=== PATIENT | female | born 1950 | race Hispanic/Latino ===

== ENCOUNTER 2018-01-03 06:46 | Inpatient (IN) | payer MEDICARE ==
[2017-12-31 09:18] LABS: BASOPHILS % 0.5 % (0.0-1.0); EOSINOPHILS # (AUTO) 0.1 (0.0-0.4); EOSINOPHILS % 1.4 % (0.0-6.0); HEMATOCRIT 40.8 % (34.2-44.1); HEMOGLOBIN 13.3 g/dL (12.0-16.0); LYMPHOCYTES # (AUTO) 1.9 (1.0-3.2); LYMPHOCYTES % 24.5 % (18.0-39.1); MEAN CORPUSCULAR HEMOGLOBIN 30.5 pg (28-32); MEAN CORPUSCULAR HGB CONC 32.6 g/dL (31-35); MEAN CORPUSCULAR VOLUME 93.6 fL (81-99); MONOCYTES # (AUTO) 0.5 (0.2-0.8); MONOCYTES % 5.9 % (4.4-11.3); NEUTROPHILS # (AUTO) 5.2 (2.1-6.9); NEUTROPHILS % 67.2 % (38.7-80.0); PLATELET COUNT 203 x10e3/uL (140-360); RED BLOOD COUNT 4.36 x10e6/uL (3.6-5.1); RED CELL DISTRIBUTION WIDTH 13.4 % (11.7-14.4)
[2017-12-31 09:34] LABS: BLOOD UREA NITROGEN 18 mg/dL (7-26); BUN/CREATININE RATIO 23 (6-25); CALCIUM 9.8 mg/dL (8.4-10.2); CARBON DIOXIDE 26 mmol/L (22-29); CHLORIDE 105 mmol/L (98-107); CREATININE, SERUM 0.79 mg/dL (0.57-1.11); EST GLOMERULAR FILTRATION RATE > 60 ML/MIN (60-); GLUCOSE 103 mg/dL (74-118); SODIUM 145 mmol/L (136-145)
--- NOTE | 2017-12-31 12:52 | Diagnostic Imaging Report ---
EXAMINATION: CHEST 2 VIEWS INDICATION: Pre-Op COMPARISON: None FINDINGS: TUBES and LINES: None. LUNGS: Lungs are well inflated and clear. There is no evidence of pneumonia or pulmonary edema. PLEURA: No pleural effusion or pneumothorax. HEART AND MEDIASTINUM: The cardiomediastinal silhouette is unremarkable. Status post CABG. BONES AND SOFT TISSUES: Status post median sternotomy. No acute osseous lesion. Soft tissues are unremarkable. UPPER ABDOMEN: No free air under the diaphragm. IMPRESSION: No acute thoracic abnormality. Signed by: Dr. Aroldo Boothe MD on 12/31/2017 12:49 PM
[~2018-01-03] VITALS: Ht 157.5 cm; Wt 82.6 kg
[~2018-01-03 06:46] MED LIST: ALENDRONATE SOD70 MG PO; AMLODIPINE-VALSARTAN PO; ASPIR 8181 MG PO; CLOPIDOGREL75 MG PO; COQ-10100 MG PO; CRESTOR10 MG PO; FUROSEMIDE40 MG PO; ISOSORBIDE MONO30 MG PO; LYRICA75 MG PO; METFORMIN HCL500 MG PO; METOPROLOL SUCC50 MG PO; POTASSIUM CHLO20 ME1 PO; VITAMIN B-1250 MCG PO
[2018-01-03] MEDS ORDERED: CELECOXIB 200 MG CAP ONE (06:57)
[2018-01-03] MEDS ORDERED: GABAPENTIN 300 MG CAP ONE (06:58)
[2018-01-03] MEDS ORDERED: CEFAZOLIN SOD 2 GM/D5W 50ML 50 ML IV ONE (06:58)
[2018-01-03] MEDS ORDERED: DEXAMETHASONE SOD PHOS 10 MG/1 ML VIAL ONE (06:58)
[2018-01-03] MEDS ORDERED: ROPIVACAINE 246.25 MG, EPINEPHRINE HCL 1:1000 0.5 MG, CLONIDINE HCL 0.08 MG, KETOROLAC ... INJ ONE ×5 (07:30)
[2018-01-03] MEDS ORDERED: TRANEXAMIC ACID 1,000 MG/10 ML ML ONE (09:07)
[2018-01-03] MEDS ORDERED: BACITRACIN 50,000 UNIT VIAL ONE (09:07)
[2018-01-03] MEDS ORDERED: MUPIROCIN 2% OINT 22 GM TUBE ONE (09:07)
[2018-01-03] MEDS ORDERED: BUPIVACAINE 7.5MG/ML /DEXTROSE 82.5MG/ML 2 ML AMP INJ ONE (09:30)
[2018-01-03] MEDS ORDERED: SODIUM CHLORIDE 0.9% 1000ML 1,000 ML IV SCH (10:59)
[2018-01-03] MEDS ORDERED: DIPHENHYDRAMINE HCL INJ 50 MG/ML VIAL IM/IV PRN (11:00)
[2018-01-03] MEDS ORDERED: HYDROCODONE/APAP 7.5MG-325MG 1 EA TAB PO PRN (11:00)
[2018-01-03] MEDS ORDERED: PROMETHAZINE HCL (IM) 25 MG/ML VIAL IM PRN (11:00)
[2018-01-03] MEDS ORDERED: DOCUSATE SODIUM 100 MG CAP PO PRN (11:00)
[2018-01-03] MEDS ORDERED: ACETAMINOPHEN 650 MG SUPP PR PRN (11:00)
[2018-01-03] MEDS ORDERED: KETOROLAC TROMETHAMINE 30 MG/ML VIAL IV PRN (11:00)
[2018-01-03] MEDS ORDERED: HYDROCODONE/APAP 5MG-325MG TAB PO PRN (11:00)
[2018-01-03] MEDS ORDERED: ONDANSETRON HCL INJ 2 MG/ML VIAL IV PRN (11:00)
--- NOTE | 2018-01-03 11:39 | Diagnostic Imaging Report ---
PROCEDURE:X-RAY PELVIS, AP VIEW COMPARISON:None. INDICATIONS:POST LEFT HIP SURGERY FINDINGS: Post operative changes of the left hip arthroplasty with expected soft tissue swelling and emphysema. Skin humberto overlying superior lateral left thigh. Hardware is intact. Degenerative changes of the right hip. CONCLUSION: Postoperative changes of the left hip arthroplasty. Dictated by: Abel Laughlin M.D. on 01/03/2018 at 11:46 Electronically approved by: Abel Laughlin M.D. on 01/03/2018 at 11:46
[2018-01-03] MEDS ORDERED: FENTANYL CITRATE/PF 100MCG/2 ML INJ ONE (13:54)
[2018-01-03] MEDS ORDERED: MIDAZOLAM HCL 2 MG/2 ML VIAL ONE (13:54)
[2018-01-03] MEDS ORDERED: CEFAZOLIN SOD 1 GM/D5W 50ML 50 ML IV SCH (14:00)
[2018-01-03 16:30] VITALS: BP 153/69
[2018-01-03 16:41] VITALS: BP 153/69
[2018-01-03] MEDS ORDERED: CELECOXIB 100 MG CAP PO SCH (17:00)
[2018-01-03] MEDS: ASPIRIN 325 MG TAB PO SCH (17:20)
[2018-01-03] MEDS: CELECOXIB 200 MG CAP PO SCH (17:20)
[2018-01-03] MEDS: CEFAZOLIN SOD 1 GM VIAL IV SCH (17:30)
[2018-01-03] MEDS: ACETAMINOPHEN 1000 MG/100 ML IV SCH (17:55)
[2018-01-03 20:00] VITALS: BP 175/76
[2018-01-03] MEDS ORDERED: ZOLPIDEM TARTRATE 5 MG TAB PO PRN (21:00)
[2018-01-03] MEDS ORDERED: VALSARTAN 160 MG TAB PO SCH (22:00)
[2018-01-03] MEDS ORDERED: AMLODIPINE BESYLATE 5 MG TAB PO SCH (22:00)
[2018-01-04] VITALS: BP 124/60
[2018-01-04] MEDS: CEFAZOLIN SOD 1 GM VIAL IV SCH ×2 (00:31→08:16)
[2018-01-04 04:00] VITALS: BP 138/60
[2018-01-04] MEDS: ACETAMINOPHEN 1000 MG/100 ML IV SCH ×2 (05:35)
[2018-01-04 05:58] LABS: HEMATOCRIT 34.7 % (34.2-44.1); HEMOGLOBIN 11.4 g/dL (12.0-16.0)
[2018-01-04] MEDS ORDERED: METFORMIN HCL 500 MG TAB PO SCH (08:00)
[2018-01-04] MEDS: CELECOXIB 200 MG CAP PO SCH (08:16)
[2018-01-04] MEDS: ASPIRIN 325 MG TAB PO SCH (08:16)
[2018-01-04 08:27] VITALS: BP 161/74
--- NOTE | 2018-01-04 08:43 | Operative Report ---
DATE OF PROCEDURE: January 03, 2018 GLUE BONE CRUSHER: Geremias Woodard PA-C The patient was brought to the operating room for induction of anesthesia. Throughout this case, my PA's assistance was necessary for retraction of soft tissue and positioning of the extremity. This allows for efficient and technically successful execution of the operation and is considered medically necessary. PREOPERATIVE DIAGNOSIS: Osteoarthritis, left hip. POSTOPERATIVE DIAGNOSIS: Osteoarthritis, left hip. PROCEDURE: Left total hip arthroplasty. INDICATIONS: The patient is a 67-year-old lady who has end-stage arthritis of her left hip. She has failed conservative management and would now like to proceed with a left total hip replacement. The risks and benefits of the procedure have been explained. She states she understands and wishes to proceed. DESCRIPTION OF PROCEDURE: The patient was brought to the operating room and given a spinal anesthetic. She received prophylactic antibiotics and tranexamic acid in the holding area. She was positioned in the right lateral decubitus position. Her left hip was prepped and draped in a sterile manner. A preoperative time out was performed. A posterior approach to the left hip was made. Abundant subcutaneous and adipose tissue was encountered. Hemostasis was obtained with electrocautery. The posterior capsule was carefully exposed. A deep self-retaining Charnley retractor was placed. Care was taken to avoid injury to the sciatic nerve. Further hemostasis was obtained with electrocautery. The short external rotators and posterior capsule were released. The hip was dislocated. An oscillating saw was used to resect the femoral head. Acetabular retractors were then carefully placed. Soft tissue releases were performed to provide adequate visualization. This was a somewhat deep wound due to the patient's body mass index. Marginal osteophytes and labral remnants were excised. The true floor of the acetabulum was established with a 44-mm reamer. The socket was then sequentially reamed up to 51 mm. A large subchondral cyst in the superior dome of the socket was debrided. Autologous bone graft was taken from the proximal femur and impacted into the cystic space. A [employer] osseo-T socket was then seated. This had a 52 mm outer diameter. A highly cross link polyethylene liner with a 36 mm inner diameter and no posterior elevation was then impacted into place. A single 20-mm screw had been used to augment fixation. The hip had been thoroughly irrigated on numerous occasions at this time with a shower-tip pulsatile lavage. A portion of a 100 mL premixed pericapsular KADY injection was placed around the soft tissue. The socket was then packed with moistly soaked lap sponge and attention was directed towards proximal femur. A taper pin reamer was used to establish entry to the femoral canal. The [employer] Taperloc broaches were then impacted. A #5 stem had good canal fill and stability for trial reductions. A standard 36-mm head was felt to provide optimal roman catholic of limb length and stability. The hip was put through a full arc of motion and noted have good stability. The trial implants were removed. The hip was further irrigated with a pulsatile lavage. The remainder of the pericapsular injection was placed into the soft tissue. The stem was then impacted into place. A 36 mm ceramic head and a standard neck were seated onto a clean and dry stem. A final reduction was performed. The hip was again put through an arc of motion and noted to have good stability. The posterior capsule was repaired with interrupted #2 Ethibond. The piriformis had been left intact. The tensor fascia was closed with interrupted #2 Ethibond. The skin was carefully closed with subcuticular Vicryl and humberto. A sterile bandage was applied. She was returned to the supine position and transported to the recovery room in stable condition. Estimated blood loss was about 100 mL. At the end of the procedure, all needle and sponge counts were correct. Job#: [id number] MS
[2018-01-04] MEDS ORDERED: METOPROLOL SUCCINATE 50 MG TAB XL PO SCH (09:00)
[2018-01-04] MEDS ORDERED: PREGABALIN 50 MG CAP PO SCH (09:00)
[2018-01-04] MEDS ORDERED: FUROSEMIDE 40 MG TAB PO SCH (09:00)
[2018-01-04] MEDS ORDERED: ISOSORBIDE MONONITRATE 30 MG TAB CR PO SCH (09:00)
[2018-01-04] MEDS ORDERED: SIMVASTATIN 40 MG TAB PO SCH (09:00)
[2018-01-04] MEDS ORDERED: POTASSIUM CHLORIDE 20 MEQ TAB CR PO SCH (09:00)
[2018-01-04 09:29] VITALS: BP 161/74
[2018-01-04] MEDS ORDERED: ACETAMINOPHEN 1000 MG/100 ML IV PRN (11:00)
[2018-01-04] MEDS ORDERED: ASPIRIN325 MG PO (11:37)
[2018-01-04] MEDS ORDERED: NORCO 7.5-3251 EACH PO ×2 (12:24→12:27)
[2018-01-04 13:22] VITALS: BP 126/60
== END 2018-01-04 13:30 | disposition home health service (06) | DRG 470 ==
LOC: OR 06:46 → PACU V 11:01 → MED/SURG 15:46
PROVIDERS: ADMIT Specialist; ATTEND Specialist
PROC: 0SRB04Z Replacement of Left Hip Joint with Ceramic on Polyethylene Synthetic Substitute, Open Approach (ICD-10-PCS; principal; 2018-01-04)
DX: M16.12 Unilateral primary osteoarthritis, left hip (principal); I10 Essential (primary) hypertension; E11.42 Type 2 diabetes mellitus with diabetic polyneuropathy; Z95.1 Presence of aortocoronary bypass graft; Z79.84 Long term (current) use of oral hypoglycemic drugs; I25.2 Old myocardial infarction; K21.9 Gastro-esophageal reflux disease without esophagitis; Z86.73 Personal history of transient ischemic attack (TIA), and cerebral infarction without residual deficits; I25.10 Atherosclerotic heart disease of native coronary artery without angina pectoris; D64.9 Anemia, unspecified
CPT/HCPCS: 36415; 71046; 72170; 80048; 82948; 85014; 85018; 85025; 86850; 86900; 86920; J0171; J0690; J1100; J1885; J2250; J2795; J7030

== ENCOUNTER 2019-12-04 17:12 | Inpatient (IN) | payer MEDICARE ==
[~2019-12-04] VITALS: Ht 157.5 cm; Wt 82.6 kg
[~2019-12-04 17:12] MED LIST changes: +ASPIRIN325 MG PO; +NORCO 7.5-3251 EACH PO
[2019-12-04] MEDS ORDERED: ASPIRIN 81 MG CHEW TAB PO ONE (17:15)
[2019-12-04] MEDS ORDERED: AZITHROMYCIN 500MG/NS 250 ML 250 ML IV STA (17:15)
[2019-12-04] MEDS ORDERED: ACETAMINOPHEN 325 MG TAB PO STA (17:15)
--- NOTE | 2019-12-04 17:15 | Emergency Department Note ---
History of Present Illnes History of Present Illness History of Present Illness This is a 69 year old female with one week h/o of fevers, malaise and diarrhea of one week duration. Patient had tested positive for COVID-19 infectionby PCP. Historian: Patient Arrival Mode: Car Onset (how long ago): week(s) Location: generalized Radiation: Reports back, Reports extremity Severity: moderate Onset quality: gradual Duration (how long): week(s) Timing of current episode: constant Progression: worsening Chronicity: new Context: Reports recent illness Relieving factors: none Exacerbating factors: none Associated symptoms: Reports fever/chills, Reports shortness of breath, Reports weakness Treatments prior to arrival: none Previous service: medications given, tests performed, re-evaluation Past Medical/Family History Physician Review I have reviewed the patient's past medical and family history. Any updates have been documented here. Past Medical History Past Medical History: [place], CVA Other Surgery: C section, gall bladder surgery by pass Social History Smoking Cessation: Never Smoker Counseling Performed: No Alcohol Use: None Any Illegal Drug Use: No Review of Systems Review of Systems Constitutional: Reports fever EENTM: Reports no symptoms Cardiovascular: Reports no symptoms Respiratory: Reports cough Gastrointestinal: Reports diarrhea Genitourinary: Reports no symptoms Musculoskeletal: Reports no symptoms Integumentary: Reports no symptoms Neurological: Reports no symptoms Psychological: Reports no symptoms Endocrine: Reports no symptoms Hematological/Lymphatic: Reports no symptoms Physical Exam Related Data Allergies: Coded Allergies: No Known Allergies (Unverified , 12/31/17) Triage Vital Signs Vital Signs Date Time Temp Pulse Resp B/P (MAP) Pulse Ox O2 Delivery O2 Flow Rate FiO2 12/04/19 17:17 100.4 82 24 158/71 93 Room Air Vital signs reviewed: Yes Physical Exam CONSTITUTIONAL Constitutional: Present obese, Present ill appearing HENT HENT: Present normocephalic, Present atraumatic, Present oropharynx clear/moist, Present nose normal HENT L/R: Present left ext ear normal, Present right ext ear normal EYES Eyes: Reports PERRL, Reports conjunctivae normal NECK Neck: Present ROM normal PULMONARY Pulmonary: Present other (decreased BS) CARDIOVASCULAR Cardiovascular: Present regular rhythm, Present heart sounds normal, Present capillary refill normal, Present normal rate GASTROINTESTINAL Abdominal: Present soft, Present nontender, Present bowel sounds normal GENITOURINARY Genitourinary: Present exam deferred SKIN Skin: Present warm, Present dry MUSCULOSKELETAL Musculoskeletal: Present ROM normal NEUROLOGICAL Neurological: Present alert, Present oriented x 3, Present no gross motor or sensory deficits PSYCHOLOGICAL Psychological: Present mood/affect normal, Present judgement normal Results Laboratory Lab results reviewed: Yes Laboratory comments UTI : many bacteria Imaging Imaging results reviewed: Yes Impressions [place] [address] Patient Name: JONA HUTSON MR #: [id number] : 1950 Age/Sex: 69/F Req #: [id number] Adm Physician: LEONA POWELL MD Ordered by: JOSEPH TRAVIS DO Report #: [id number] Location: [facility] Room/Bed: [place] [address] Procedure: [id number] DX/CHEST SINGLE (PORTABLE) Exam Date: 12/04/19 Exam Time: 1740 REPORT STATUS: Signed EXAMINATION: CHEST SINGLE (PORTABLE) INDICATION: Fever and difficulty breathing. COMPARISON: Chest x-ray on 12/31/2017 FINDINGS: TUBES and LINES: None. LUNGS: There is low lung volumes with multifocal patchy airspace opacities particularly in the left mid and lower lungs. PLEURA: There is probable left pleural effusion. HEART AND MEDIASTINUM: The left heart border is obscured by left lower lobe opacification. BONES AND SOFT TISSUES: No acute osseous lesion. Median sternotomy wires are unchanged. UPPER ABDOMEN: No free air under the diaphragm. IMPRESSION: Multifocal patchy airspace opacities particularly in the left lower lobe with probable superimposed left pleural effusion. This constellation of findings are highly suspicious for multifocal infection such as viral pneumonia (including Covid-19). Signed by: Nai Cobos MD on 12/04/2019 6:01 PM Dictated By: NAI COBOS MD 00 Transcribed By: AB on 12/04/191800 COPY TO: JOSEPH TRAVIS DO~ Procedures 12 Lead ECG Interpretation ECG Interpretation : ECG: ECG 1 Platform Attendant: Interpreted by ED physician Date: Dec 04, 2019 Time: 17:17 Prior ECG tracings: reviewed Rhythm: sinus rhythm Rate: normal BPM: 84 QRS axis: normal ST segments normal: No ST segment flattening: I, II, aVL T waves normal: Yes Clinical Impression: non-specific ECG Critical Care Time Total Critical Care Time (min): 31 Critcal care necessary due to: respiratory failure Critcal care time spent by me: evaluation patient response to tx, examination of patient, obtaining hx from patient/surrogate, order/perform tx or interventions, order/review laboratory studies, order/review radiographic studies, pulse oximetry Assessment & Plan Medical Decision Making MDM 69 yof presents with dyspea and hypoxia. Dyspnea upon arrival. Diff Dx : PE, PTX, CHF, Sepsis, COVID-19 URI infection, ACS, COPDD, ARDS, airway obstruction, Lung CA. Patient concerning for impending respiratory failure . Plan to admit transferadmission Assessment & Plan Final Impression: (1) Acute hypoxemic respiratory failure due to COVID-19 (2) UTI (urinary tract infection) Depart Disposition: ADMITTED Home Meds Reported Medications Folic Acid/Multivits-Min/Lut (MULTI-VITAMIN GUMMIES) 1 Each Tab.chew, 1 TAB.CHEW PO DAILY 12/04/19 Gabapentin (NEURONTIN) 300 Mg Capsule, 300 MG PO TID, CAP 12/04/19 [Amlodipine-Valsartan] 5/,320 No Conflict Check, 1 TAB PO DAILY 5/320 MG 12/31/17 Metformin Hcl (METFORMIN HCL) 500 Mg Tablet, 500 MG PO BID, #60 TAB 12/31/17 Clopidogrel Bisulfate (CLOPIDOGREL) 75 Mg Tablet, 75 MG PO DAILY, #30 TAB 12/31/17 Furosemide (FUROSEMIDE) 40 Mg Tablet, 20 MG PO Daily, #30 TAB 12/31/17 Metoprolol Succinate (METOPROLOL SUCCINATE) 50 Mg Tab.er.24h, 100 MG PO DAILY, MG 12/31/17 Isosorbide Mononitrate (ISOSORBIDE MONONITRATE ER) 30 Mg Tab.er.24h, 60 MG PO DAILY, #30 TAB 12/31/17 Rosuvastatin Calcium (CRESTOR) 10 Mg Tab, 20 MG PO DAILY THERAPEUTICALLY SUBSTITUTED WITH SIMVASTATIN 40MG 12/31/17 Alendronate Sodium (ALENDRONATE SODIUM) 70 Mg Tablet, 70 MG PO weekly WEEKLY every wednesday12/31/17 Discontinued Reported Medications Hydrocodone Bit/Acetaminophen (NORCO 7.5-325 TABLET) 1 Each Tablet, 1 EA PO Q4HR PRN for thuan, TAB 01/04/18 Hydrocodone Bit/Acetaminophen (NORCO 7.5-325 TABLET) 1 Each Tablet, 1 EA PO Q4HR for PAIN, TAB 01/04/18 Cyanocobalamin (Vitamin B-12) (VITAMIN B-12) 50 Mcg Tablet, MCG PO DAILY 12/31/17 Ubidecarenone (COQ-10) 100 Mg Capsule, 200 MG PO DAILY 12/31/17 Potassium Chloride (POTASSIUM CHLORIDE) 20 Meq Tab.er.prt, 20 MEQ PO DAILY 12/31/17 Pregabalin (LYRICA) 75 Mg Cap, 100 MG PO TID, #30 CAP 12/31/17 Discontinued Scripts Aspirin (ASPIRIN) 325 Mg Tablet, 325 MG PO BID for 21 Days Prov:ANNALISA NICHOLS 01/04/18 Medications in the ED Acetaminophen 650 mg ONCE STAT PO Last administered on 12/04/19at 18:01; Admin Dose 650 MG; Start 12/04/19 at 17:15; Stop 12/04/19 at 17:23; Status DC Azithromycin 250 ml @ 125 mls/hr ONCE STAT IV Last administered on 12/04/19at 18:01; Admin Dose 125 MLS/HR; Start 12/04/19 at 17:15; Stop 12/04/19 at 19:14; Status DC Aspirin 81 mg PRN ONCE PO Last administered on 12/04/19at 18:01; Admin Dose 81 MG; Start 12/04/19 at 17:15; Stop 12/04/19 at 17:23; Status DC JOSEPH TRAVIS DO Dec 04, 2019 17:15
[2019-12-04 18:00] LABS: BASOPHILS % 0.2 % (0.0-1.0); EOSINOPHILS % 0.5 % (0.0-6.0); HEMATOCRIT 35.8 % (34.2-44.1); HEMOGLOBIN 11.4 g/dL (12.0-16.0); LYMPHOCYTES # (AUTO) 1.2 (1.0-3.2); MEAN CORPUSCULAR HEMOGLOBIN 28.3 pg (28-32); MEAN CORPUSCULAR HGB CONC 31.8 g/dL (31-35); MEAN CORPUSCULAR VOLUME 88.8 fL (81-99); MONOCYTES # (AUTO) 0.5 (0.2-0.8); MONOCYTES % 6.9 % (4.4-11.3); NEUTROPHILS # (AUTO) 4.8 (2.1-6.9); NEUTROPHILS % 73.9 % (38.7-80.0); PLATELET COUNT 266 x10e3/uL (140-360); RED BLOOD COUNT 4.03 x10e6/uL (3.6-5.1); RED CELL DISTRIBUTION WIDTH 13.5 % (11.7-14.4)
[2019-12-04 18:02] LABS: INR 0.97; PROTHROMBIN TIME 13.5 seconds (11.9-14.5)
--- NOTE | 2019-12-04 18:05 | Diagnostic Imaging Report ---
EXAMINATION: CHEST SINGLE (PORTABLE) INDICATION: Fever and difficulty breathing. COMPARISON: Chest x-ray on 12/31/2017 FINDINGS: TUBES and LINES: None. LUNGS: There is low lung volumes with multifocal patchy airspace opacities particularly in the left mid and lower lungs. PLEURA: There is probable left pleural effusion. HEART AND MEDIASTINUM: The left heart border is obscured by left lower lobe opacification. BONES AND SOFT TISSUES: No acute osseous lesion. Median sternotomy wires are unchanged. UPPER ABDOMEN: No free air under the diaphragm. IMPRESSION: Multifocal patchy airspace opacities particularly in the left lower lobe with probable superimposed left pleural effusion. This constellation of findings are highly suspicious for multifocal infection such as viral pneumonia (including Covid-19). Signed by: Aleksandr Rachel MD on 12/04/2019 6:01 PM
[2019-12-04 18:10] LABS: ALANINE AMINOTRANSFERASE 20 IU/L (0-55); ALBUMIN 3.1 g/dL (3.5-5.0); ALBUMIN/GLOBULIN RATIO 0.7 (0.8-2.0); ALKALINE PHOSPHATASE 53 IU/L (40-150); ANION GAP 14.6 mmol/L (8-16); BLOOD UREA NITROGEN 15 mg/dL (7-26); BUN/CREATININE RATIO 19 (6-25); CARBON DIOXIDE 25 mmol/L (22-29); CHLORIDE 104 mmol/L (98-107); CREATINE KINASE 126 IU/L (29-168); CREATININE, SERUM 0.81 mg/dL (0.57-1.11); EST GLOMERULAR FILTRATION RATE > 60 ML/MIN (60-); GLUCOSE 108 mg/dL (74-118); POTASSIUM 3.6 mmol/L (3.5-5.1); SODIUM 140 mmol/L (136-145)
--- NOTE | 2019-12-04 18:15 | NUR ---
Pt received from ER at this time. Pt is aox3 and able to verbalize needs. Denies any pain at this time. Breaths are even and unlabored on room air at this time. IV to Left AC is in place and patent currently running azithromycin.
[2019-12-04 18:30] VITALS: BP 137/64
[2019-12-04 18:31] LABS: BACTERIA,URINE MANY /HPF; BILIRUBIN,URINE NEGATIVE (NEGATIVE); CLARITY,URINE SL CLOUDY (CLEAR); COLOR,URINE YELLOW (YELLOW); EPITHELIAL CELLS,URINE RARE /LPF; KETONES,URINE NEGATIVE (NEGATIVE); LEUKOCYTE ESTERASE ,URINE SMALL (NEGATIVE); NITRITE,URINE POSITIVE (NEGATIVE); PROTEIN,URINE DIPSTICK 2+ (NEGATIVE); URINE UROBILINOGEN 1 mg/dL (0.2 - 1)
[2019-12-04 20:00] VITALS: BP 128/61
[2019-12-04] MEDS ORDERED: CEFTRIAXONE SOD 1 GM/NS 50 ML 50 ML IV SCH (20:00)
[2019-12-04] MEDS ORDERED: ACETAMINOPHEN 325 MG TAB PO PRN (20:00)
[2019-12-04 20:08] VITALS: BP 128/61
[2019-12-04] MEDS ORDERED: NEURONTIN300 MG PO (20:09)
[2019-12-04] MEDS ORDERED: MULTI-VITAMIN1 EAC1 PO (20:09)
[2019-12-04] MEDS: ENOXAPARIN 30 MG/0.3 ML SYR SC SCH (20:45)
[2019-12-04] MEDS ORDERED: SODIUM CHLORIDE 0.9% 250ML 250 ML ONE (20:48)
[2019-12-04] MEDS ORDERED: ZOLPIDEM TARTRATE 5 MG TAB PO PRN (21:00)
--- NOTE | 2019-12-04 21:51 | Consultation ---
DATE OF CONSULTATION: Pulmonary Critical Care Consultation CHIEF COMPLAINT: Cough, dyspnea, and fevers. HISTORY OF PRESENT ILLNESS: The patient is a 69-year-old woman. She reports a history of fever and cough for about 10 days. She notes some shortness of breath. She has no chest pain. She has no nausea or vomiting. PAST SURGICAL HISTORY: Prior heart surgery. PAST MEDICAL HISTORY: 1. Borderline diabetes. 2. Coronary artery disease. 3. Hypertension. 4. Chronic pain. ALLERGIES: NO KNOWN DRUG ALLERGIES. FAMILY HISTORY: Noncontributory. SOCIAL HISTORY: The patient is not an active smoker. She is not an active drinker. REVIEW OF SYSTEMS: She has some fever and some cough. She reports dyspnea on exertion. She has no chest pain. She is not having any abdominal pain, nausea, or vomiting. There is no leg edema. PHYSICAL EXAMINATION: VITAL SIGNS: The patient is afebrile. The blood pressure is 137/64, saturation is 96%, and the pulse is 71. T-max is 100.4. HEENT: Shows no facial swelling or erythema. CARDIAC: Reveals regular rate and rhythm with normal S1 and S2. LUNGS: Auscultation of lungs reveals clear breath sounds bilaterally. There is no wheezing. ABDOMEN: Soft and nontender. There is no rebound or guarding. EXTREMITIES: Shows no leg edema or calf tenderness. There is no cyanosis or clubbing. SKIN: Shows no rashes. NEUROLOGICAL: Shows no focal abnormalities. LABORATORY DATA: White blood cell count is 6.4 and the hemoglobin is 11.4. The platelet count is 266. BUN to creatinine ratio is normal. Other electrolytes are within normal limits. The albumin is 3.1. RADIOGRAPHIC DATA: Chest x-ray shows multifocal airspace disease consistent with viral pneumonia. IMPRESSION: 1. Viral pneumonia and COVID-19 infection. 2. Diabetes. 3. Coronary artery disease. 4. Hypertension. 5. Chronic pain. PLAN: 1. Zithromax and Rocephin. 2. Lovenox. 3. Oxygen as needed. 4. Monitor and control blood sugars. MD ARSENIO Pérez/TREY /[id number]
[2019-12-04] MEDS ORDERED: HYDROCODONE/APAP 7.5MG-325MG 1 EA TAB PO SCH (22:00)
[2019-12-04 23:37] VITALS: BP 140/60
[2019-12-05] MEDS ORDERED: HYDRALAZINE HCL 20 MG/ML VIAL IV PRN (00:45)
[2019-12-05] MEDS ORDERED: HYDROCODONE/APAP 7.5MG-325MG 1 EA TAB PO PRN (00:45)
[2019-12-05] MEDS ORDERED: DEXTROSE 50% SYRINGE 50 ML IV PRN (00:45)
--- NOTE | 2019-12-05 01:06 | History and Physical ---
This is coverage for Dr. Silas Torre. CHIEF COMPLAINT: Pneumonia. HISTORY OF PRESENT ILLNESS: Ms. Iniguez is a pleasant 69-year-old female with pneumonia. The patient with initial symptom on November 21 to November 22. The patient eventually went for testing, where she was told it was positive. Location was a stand-alone [facility] facility. She contacted her main doctor and was told to come to the emergency room. The patient has had a cough intermittently. She has also had fevers and chills. Here in our hospital, so far, she is at 100.4 degrees Fahrenheit. Chest x-ray was performed showing a [id number] pneumonia. The patient with 94% oxygen saturation on room air FiO2 for now. No asthma. Mild allergies. Mild GERD. PAST MEDICAL HISTORY: [place], CVA, , gallbladder, and bypass. MEDICATIONS: Medication list reviewed per the chart record. ALLERGIES: NO KNOWN DRUG ALLERGIES. FAMILY HISTORY: Noncontributory to this condition. SOCIAL HISTORY: No smoking. No drinking. No drugs. The patient is retired. The patient lives alone. The patient claims she only goes to a store rarely and does not socialize. The patient claims that she has only visited her [id number] mother, who is still walking and her bed-bound sister, who has had long-term debility. The patient claims she is around providers that care for her sister and mother at times. REVIEW OF SYSTEMS: GENERAL: No chronic weight changes. OPHTHALMOLOGIC: No floaters. ENT: No mouth ulcers. ENDOCRINE: No thyroid disease. PULMONARY: No hemoptysis. CARDIAC: No chest pain. GI: No blood in stool. : No blood in urine. DERMATOLOGIC: No rash. NEUROLOGIC: No seizures. PSYCHIATRIC: No depression. PHYSICAL EXAMINATION: VITAL SIGNS: Now afebrile, vital signs noted, reviewed per the chart record. GENERAL: In no acute distress, alert and calm. HEENT: Normocephalic and atraumatic. NECK: Supple. Throat midline. LUNGS: Bilateral air entry, but further auscultation was deferred due to coronavirus pandemic. ABDOMEN: Soft and nontender. EXTREMITIES: No clubbing, no cyanosis, no edema. Limited exam due to coronavirus pandemic. LABORATORY DATA: 0.1 creatinine, albumin 3.1. LFTs unremarkable. 1.2000 lymphocytes per high-powered field. IMPRESSION AND PLAN: 1. COVID-19 pneumonitis. 2. Possible superimposed community-acquired pneumonia, focal left-sided opacity larger than other lung virgen. 3. Coronary artery disease, status post myocardial infarction, reported. 4. History of stroke, in notes. 5. Hyperlipidemia. 6. Presumed diabetes, metformin use. Repeat chest x-ray in the morning. Try to obtain outside coronavirus test result. Pulmonary consultation with Dr. Nikita Jay. Give steroids. Follow up oxygen level very closely, noting for now, she is on room air FiO2. However, the lung opacities are quite sizable. Give antibiotics for possibility of bacterial superimposed pneumonia. Consider ultrasound of chest versus other modality to see the left lung to rule out pleural effusion. Thank you very much. This is coverage for Dr. Silas Torre. MD NEFTALI Mcpherson/MODL /[id number]
[2019-12-05 04:44] VITALS: BP 142/38
[2019-12-05 05:49] LABS: BASOPHILS % 0.4 % (0.0-1.0); EOSINOPHILS # (AUTO) 0.1 (0.0-0.4); EOSINOPHILS % 1.5 % (0.0-6.0); HEMATOCRIT 34.1 % (34.2-44.1); HEMOGLOBIN 10.9 g/dL (12.0-16.0); LYMPHOCYTES # (AUTO) 1.3 (1.0-3.2); LYMPHOCYTES % 28.3 % (18.0-39.1); MEAN CORPUSCULAR HEMOGLOBIN 28.4 pg (28-32); MEAN CORPUSCULAR VOLUME 88.8 fL (81-99); MONOCYTES # (AUTO) 0.3 (0.2-0.8); MONOCYTES % 7.5 % (4.4-11.3); NEUTROPHILS # (AUTO) 2.8 (2.1-6.9); NEUTROPHILS % 62.1 % (38.7-80.0); PLATELET COUNT 235 x10e3/uL (140-360); RED BLOOD COUNT 3.84 x10e6/uL (3.6-5.1); RED CELL DISTRIBUTION WIDTH 13.4 % (11.7-14.4)
[2019-12-05] MEDS ORDERED: DEXAMETHASONE SOD PHOS 10 MG/1 ML VIAL IV SCH (06:00)
[2019-12-05] MEDS ORDERED: DEXAMETHASONE SOD PHOS INJ 4 MG/ML VIAL IV SCH (06:00)
[2019-12-05 06:42] LABS: ALANINE AMINOTRANSFERASE 16 IU/L (0-55); ALBUMIN 2.7 g/dL (3.5-5.0); ALBUMIN/GLOBULIN RATIO 0.7 (0.8-2.0); ALKALINE PHOSPHATASE 45 IU/L (40-150); ANION GAP 13.1 mmol/L (8-16); BLOOD UREA NITROGEN 12 mg/dL (7-26); BUN/CREATININE RATIO 17 (6-25); CALCIUM 8.3 mg/dL (8.4-10.2); CARBON DIOXIDE 26 mmol/L (22-29); CHLORIDE 105 mmol/L (98-107); EST GLOMERULAR FILTRATION RATE > 60 ML/MIN (60-); GLUCOSE 97 mg/dL (74-118); POTASSIUM 3.1 mmol/L (3.5-5.1); SODIUM 141 mmol/L (136-145)
[2019-12-05] MEDS ORDERED: PREGABALIN 75 MG CAP PO SCH (07:00)
[2019-12-05] MEDS: INSULIN REGULAR, HUMAN 100 UNIT/1 ML 3ML VIAL SQ SCH ×2 (07:30→11:30)
[2019-12-05] MEDS: METFORMIN HCL 500 MG TAB PO SCH ×2 (07:46→16:52)
[2019-12-05] MEDS: ASCORBIC ACID 500 MG TAB PO SCH ×2 (07:47→16:52)
[2019-12-05] MEDS: GABAPENTIN 300 MG CAP PO SCH ×2 (07:47→16:52)
[2019-12-05] MEDS: ENOXAPARIN 30 MG/0.3 ML SYR SC SCH (07:48)
[2019-12-05 07:59] VITALS: BP 154/73
[2019-12-05 08:57] VITALS: BP 154/73
[2019-12-05] MEDS ORDERED: PREGABALIN 50 MG CAP PO SCH (09:00)
[2019-12-05] MEDS ORDERED: ASPIRIN 325 MG TAB PO SCH (09:00)
[2019-12-05] MEDS ORDERED: ZINC SULFATE 220 MG CAP PO SCH (09:00)
[2019-12-05] MEDS ORDERED: CLOPIDOGREL BISULFATE 75 MG TAB PO SCH (09:00)
[2019-12-05] MEDS ORDERED: ISOSORBIDE MONONITRATE 30 MG TAB CR PO SCH (09:00)
[2019-12-05] MEDS ORDERED: METOPROLOL SUCCINATE 50 MG TAB XL PO SCH (09:00)
[2019-12-05] MEDS ORDERED: AMLODIPINE VALSARTAN PO SCH (09:00)
[2019-12-05 11:48] VITALS: BP 119/63
[2019-12-05] MEDS ORDERED: AMLODIPINE BESYLATE 5 MG TAB PO SCH (13:00)
[2019-12-05] MEDS ORDERED: VALSARTAN 80 MG TAB PO SCH (13:00)
--- NOTE | 2019-12-05 15:03 | NUR ---
Home O2 eval was completed. Pt desat to 88% on exertion. NE called and spoke to pt. Pt agreed to have home O2 set up with [facility]. Signed choice letter placed in chart. NE informed pt that portable will be delivered to bedside and that she will need to call the number on the side of the tank when she discharges for delivery of concentrator. Referral faxed to [facility] at [phone] / . Ottoniel with [facility] was notified of referral and states ok to deliver portable oxygen. Portable oxygen was given to [facility] to give to pt. Addendum: 12/05/19 at 1523 by Nahomy Ordaz CM Called and spoke with Dr. Torre regarding status/dc plan. Informed him that home O2 arranged. He states he doesn't think he's going to discharge pt yet, but will talk to Dr. Jay and then decide.
--- NOTE | 2019-12-05 15:25 | Progress Note ---
DATE: 12/05/2019 SUBJECTIVE: The patient was seen and noted on December 05, 2019. Events noted. The patient was previously admitted with acute hypoxemic respiratory failure due to COVD-19. Events noted. Basically, the patient had presented to the hospital complaining of shortness of breath and chest x-ray performed which revealed [id number]-[id number]-vizta pneumonia. The O2 saturation was 94% on room air. The patient was admitted to the hospital with pneumonitis and superimposed community-acquired pneumonia. Focal left-sided opacity larger The patient is being followed by Pulmonary, Dr. Nikita Jay. The patient has been given steroids antibiotics being given. Presently, the patient is on sliding scale insulin p.o. daily, Lovenox 30 mg subcutaneously q.12 hours, metoprolol succinate 100 mg p.o. daily, ascorbic acid 500 p.o. b.i.d., gabapentin 300 p.o. three times a day, Plavix 75 mg p.o. daily, metformin 500 mg p.o. b.i.d., Imdur 60 mg p.o. daily, aspirin 325 mg p.o. daily, every day, valsartan 320 mg p.o. daily, Norvasc 5 mg p.o. daily, hydralazine 10 mg IV q.4 hours p.r.n. basis. hydrocodone, pain medications, sleeping pills. who has been alert. Vital signs, currently blood pressure was 119/63, respiration 18, pulse 57, temperature 98.0. The patient has been alert. LABORATORY DATA: Lab done today is noted. Hemoglobin 10.9, white blood cell count 5.53, platelet count is 235, 000. Chem profile reveals sodium 134, potassium 3.1, chloride 105, CO2 26, BUN . PLAN: Continue present care. Supplemental oxygen. IV antibiotics. Continue . Glycemic control. DVT prophylaxis. MD JULIA Lindsey/TREY /[id number]
[2019-12-05 15:37] VITALS: BP 156/69
--- NOTE | 2019-12-05 16:19 | Diagnostic Imaging Report ---
Bilateral chest ultrasound History: Pleural effusion Technique/findings: Limited bilateral chest ultrasound was performed to evaluate for pleural effusion. No pleural effusion on either side. IMPRESSION: No pleural effusion. Signed by: Mirna Thomas MD on 12/05/2019 4:16 PM
--- NOTE | 2019-12-05 17:10 | Consultation ---
DATE OF CONSULTATION: HISTORY OF PRESENT ILLNESS: Ms. Iniguez is a pleasant 69-year-old female. She started to have symptoms back on November 21, today is 14. She says she is feeling weak. The patient apparently was tested positive for COVID-19. She states she had some shortness of breath, called to the doctor to the emergency room, but when she came here, she is really off oxygen. She is doing quite well. She is not hypoxemic. She had low fever. Her chest x-ray showed infiltrate. The patient is currently as mentioned above, alert, oriented, and doing very well. She does have diabetes mellitus, coronary artery disease, hypertension, chronic pain syndrome, but she denies any symptoms at the present time. Her white count is 4.5, hemoglobin 10, hematocrit 34. Sodium 141, potassium 3.1, creatinine 0.7. CURRENT MEDICATIONS: The patient was admitted. She is currently on: 1. Insulin. 2. Zinc. 3. Lovenox. 4. Neurontin. 5. Plavix. 6. Glucophage. 7. Aspirin. 8. Dexamethasone. 9. Ceftriaxone. PHYSICAL EXAMINATION: GENERAL: She is currently alert, oriented, does not seem to be in acute distress. VITAL SIGNS: Stable, currently afebrile. HEENT: She is not icteric. NECK: Supple. CHEST: Clear. HEART: S1 and S2. ABDOMEN: Soft. IMPRESSION: COVID-19 pneumonia, but the patient is not hypoxemic, so I would recommend to discontinue dexamethasone. The patient is on Plavix. I would recommend to discontinue aspirin and Lovenox. Continue all her other medication including diabetic control. The patient is clinically stable, can be discharged home with oral antibiotic. Agree with Rocephin, azithromycin, diabetic control for the time being. We will observe for another day. If she feels to be better, she will be discharged home tomorrow with oral Ceftin, Z-Romario. We will follow. MD ANNA Noriega/TREY /[id number]
[2019-12-05] MEDS ORDERED: PROAIR HFA INH8.5 GM (17:17)
[2019-12-05] MEDS ORDERED: AZITHROMYCIN250 MG PO (17:17)
--- NOTE | 2019-12-05 18:05 | NUR ---
Pt discharged home at this time. Pt was discharged home with home oxygen and was able to properly demonstrate use of oxygen administration. 0 s/s of acute distress noted at time of discharge. Physician called prescription to patients family. Denies any pain at time of discharge. Pt verbalized understanding of all discharge instructions and follow up appointments.
== END 2019-12-05 18:05 | disposition home health service (06) | DRG 177 ==
LOC: ER 17:16 → ERHOLD 17:43 → IMCU 18:26
PROVIDERS: ADMIT Internal Medicine; ATTEND Internal Medicine
DX: U07.1 COVID-19 (principal); J12.9 Viral pneumonia, unspecified; N39.0 Urinary tract infection, site not specified; E11.9 Type 2 diabetes mellitus without complications; Z86.73 Personal history of transient ischemic attack (TIA), and cerebral infarction without residual deficits; E78.5 Hyperlipidemia, unspecified; Z79.84 Long term (current) use of oral hypoglycemic drugs; I25.2 Old myocardial infarction; G89.4 Chronic pain syndrome; Z86.711 Personal history of pulmonary embolism; Z79.01 Long term (current) use of anticoagulants; I11.0 Hypertensive heart disease with heart failure; I50.9 Heart failure, unspecified; J44.9 Chronic obstructive pulmonary disease, unspecified; Z85.118 Personal history of other malignant neoplasm of bronchus and lung
CPT/HCPCS: 36415; 71045; 76604; 80053; 81001; 82550; 82553; 82948; 83880; 84484; 85025; 85610; 93005; 99284; J0456; J0696; J1100; J1650; J7050